=== PATIENT | female | born 2000 | race African-American/Black ===

== ENCOUNTER 2019-05-11 00:01 | Inpatient (IN) ==
[2019-05-11] MEDS ORDERED: MEPERIDINE 50 MG/1 ML VIAL IV PRN (00:36)
[2019-05-11] MEDS ORDERED: BUTORPHANOL 1 MG/ML VIAL IV PRN (00:36)
[2019-05-11] MEDS ORDERED: BUTORPHANOL 2 MG/ML VIAL IV PRN (00:36)
[2019-05-11] MEDS ORDERED: ONDANSETRON 4 MG/2 ML VIAL IV PRN ×2 (00:36→08:12)
[2019-05-11] MEDS ORDERED: LACTATED RINGERS 1,000 ML IV SCH (01:00)
[2019-05-11] MEDS ORDERED: OXYTOCIN/LR 20 UNIT/1,000 ML BAG IV SCH (01:00)
[2019-05-11 01:20] LABS: Basophils % 0.3 % (0.0-0.8); Eosinophils % 0.6 % (0.00-10.9); Hematocrit 33.9 VOL% (35.7-47.0); Hemoglobin 10.5 GM/DL (12.0-16.0); Immature Granulocytes % 0.4 %; Immature Granulocytes Absolute 0.03 #; Lymphocytes # 1.9 10*3/uL (1.4-4.0); Lymphocytes % 26.9 % (21.3-54.2); Mean Corpuscular Volume 91.4 FL (87-102); Monocytes % 11.5 % (1.7-12.7); Neutrophils % 60.3 % (38.7-73.9); Platelet Count 300 T/CUMM (130-400); Red Blood Count 3.71 MC/CUMM (3.8-5.5); Red Cell Distribution Width 14.2 % (9.3-17.3)
[2019-05-11] MEDS ORDERED: CITRIC ACID/SODIUM CITRATE 30 ML UDCUP PO ONE (02:42)
[2019-05-11] MEDS ORDERED: hydrOXYzine HCL 25 MG/1 ML VIAL IM PRN (02:42)
[2019-05-11] MEDS ORDERED: FAMOTIDINE 20 MG/2 ML VIAL IV ONE (02:42)
[2019-05-11] MEDS ORDERED: ONDANSETRON 4 MG/2 ML VIAL IV ONE (02:42)
[2019-05-11] MEDS ORDERED: PROMETHAZINE 25 MG/1 ML VIAL IM ONE (02:42)
[2019-05-11] MEDS ORDERED: NALOXONE 0.4 MG/ML VIAL IV PRN (02:42)
[2019-05-11] MEDS ORDERED: diphenhydrAMINE 50 MG/1 ML VIAL IV PRN ×2 (02:42)
[2019-05-11] MEDS ORDERED: ePHEDrine 50 MG/ML AMP IV PRN (02:42)
[2019-05-11] MEDS ORDERED: LACTATED RINGERS 1,000 ML IV ONE (02:42)
[2019-05-11] MEDS ORDERED: fentaNYL 2 MCG/ROPIV 0.2% EPID 100 ML EPIDURAL SCH (03:00)
[2019-05-11] MEDS ORDERED: miSOPROStoL 200 MCG TABLET ONE (07:09)
[2019-05-11] MEDS ORDERED: METHYLERGONOVINE 0.2 MG/1 ML AMP ONE (07:10)
[2019-05-11] MEDS ORDERED: MEASLES/MUMPS/RUBELLA VACCINE 0.5 ML VIAL SUBCUT ONE (08:12)
[2019-05-11] MEDS ORDERED: ACETAMINOPHEN 325 MG TABLET PO PRN (08:12)
[2019-05-11] MEDS ORDERED: oxyCODONE/ACETAMINOPHEN 5-325 MG TABLET PO PRN (08:12)
[2019-05-11] MEDS ORDERED: OXYTOCIN/LR 20 UNIT/1,000 ML BAG IV ONE (08:12)
[2019-05-11] MEDS ORDERED: LANOLIN 50% CREAM 0.3 OZ TUBE TOP PRN (08:12)
[2019-05-11] MEDS ORDERED: BISACODYL 10 MG SUPP RECTAL PRN (08:12)
[2019-05-11] MEDS ORDERED: WITCH HAZEL PADS 100/JAR TOP PRN (08:12)
[2019-05-11] MEDS ORDERED: BENZOCAINE 20%/MENTHOL 0.5% SPRAY 56 GM CAN TOP PRN (08:12)
[2019-05-11] MEDS ORDERED: RHO(D) IMMUNE GLOBULIN 300 MCG SYRINGE IM ONE (08:12)
[2019-05-11] MEDS ORDERED: HYDROCORTISONE 2.5% RECTAL CREAM 30 GM TUBE TOP PRN (08:12)
[2019-05-11] MEDS ORDERED: DIPH/TET/ACEL PERT BOOSTER VACCINE 0.5 ML VIAL IM ONE (08:12)
[2019-05-11] MEDS: IBUPROFEN 800 MG TABLET PO PRN (16:04)
[2019-05-11] MEDS: DOCUSATE SODIUM 100 MG CAPSULE PO SCH (20:23)
[2019-05-12 05:04] LABS: Basophils % 0.3 % (0.0-0.8); Eosinophils # 0.1 10*3/uL (0.0-0.87); Eosinophils % 1.2 % (0.00-10.9); Hematocrit 29.2 VOL% (35.7-47.0); Hemoglobin 9.4 GM/DL (12.0-16.0); Immature Granulocytes % 0.4 %; Immature Granulocytes Absolute 0.04 #; Lymphocytes # 2.1 10*3/uL (1.4-4.0); Lymphocytes % 20.8 % (21.3-54.2); Mean Corpuscular HGB Conc 32.2 GM/DL (32-36); Mean Corpuscular Volume 90.1 FL (87-102); Mean Platelet Volume 11.7 FL (9.6-12.0); Monocytes % 13.6 % (1.7-12.7); Neutrophils % 63.7 % (38.7-73.9); Platelet Count 228 T/CUMM (130-400); Red Blood Count 3.24 MC/CUMM (3.8-5.5); Red Cell Distribution Width 14.3 % (9.3-17.3); White Blood Count 10.3 T/CUMM (4-12)
[2019-05-12] MEDS: DOCUSATE SODIUM 100 MG CAPSULE PO SCH ×2 (10:00→22:17)
[2019-05-12] MEDS: IBUPROFEN 800 MG TABLET PO PRN ×2 (10:01→22:20)
[2019-05-13] MEDS: oxyCODONE/ACETAMINOPHEN 5-325 MG TABLET PO PRN ×2 (00:16→11:30)
[2019-05-13] MEDS: IBUPROFEN 800 MG TABLET PO PRN (08:22)
[2019-05-13] MEDS: DOCUSATE SODIUM 100 MG CAPSULE PO SCH (10:20)
[2019-05-13 11:23] VITALS: BP 122/75
== END 2019-05-13 17:30 | disposition home or self-care (01) | DRG 807 ==
LOC: N.LDOUT 00:01 → N.LD 00:02 → N.OB 11:40
PROVIDERS: ADMIT Obstetrics & Gynecology; ATTEND Obstetrics & Gynecology